=== PATIENT | male | born 1970 | race Caucasian/White ===

== ENCOUNTER 2024-08-18 06:08 | Emergency (ER) | payer SELFPAY ==
[2024-08-18 06:10] VITALS: BP 165/104; PULSE 82; RESP 22; TEMP 36.9; O2SAT 100; BMI 36.6
--- NOTE | 2024-08-18 06:24 | XRR_ITS ---
PROCEDURE INFORMATION: Exam: XR Left Knee Exam date and time: 08/18/2024 6:57 AM Age: 54 years old Clinical indication: Pain; Knee; Left TECHNIQUE: Imaging protocol: Radiologic exam of the left knee. Views: 3 views. COMPARISON: No relevant prior studies available. FINDINGS: Bones/joints: There is a somewhat linear lucency through the medial patella vertically noted on the frontal image only. This could represent a fracture or pseudo fracture. Recommend clinical correlation. This is not visualized on the oblique or lateral images. No fractures are otherwise noted. There is no evidence of a dislocation. Bony mineralization is normal. There is no evidence of a significant joint effusion. Soft tissues: Normal. XR/XR knee LT 3V* [id number] IMPRESSION: 1. Fracture versus pseudo fracture involving the medial patella. Recommend clinical correlation. No abnormalities are otherwise appreciated
--- NOTE | 2024-08-18 06:24 | ED_ITS ---
HPI - Back Pain/Injury 2 General: Chief Complaint: Back Pain/Injury Stated Complaint: KNEE/BACK/HIP PAIN Time Seen by Provider: 08/18/24 06:13 History of Present Illness: 54-year-old male presents emergency room complaining of back pain and left hip and knee pain. Patient states yesterday he felt a popping sensation in the left knee and while he was walking across level ground. He is not any specific injury or fall no previous injury to the back. Reports pain radiating down from his back through his buttock into his leg. No urinary retention or fecal incontinence. He has no shortness of breath no swelling in his leg. Denies chest pain or shortness of breath. No direct injury to his back lower leg Associated symptoms: Deny abdominal pain, chills, dysuria, fever(s) or urinary urgency Related Data Previous Rx's Medication Instructions Recorded diclofenac sodium 75 mg 75 mg PO Q12H PRN pain #20 tabs 08/18/24 tablet,delayed release hydrocodone 5 mg-acetaminophen 325 1 tab PO Q6H PRN pain #20 tabs 08/18/24 mg tablet prednisone 20 mg tablet 20 mg PO TID #15 tabs 08/18/24 tizanidine 4 mg tablet 4 mg PO Q6H PRN muscle spasticity 08/18/24 #20 tabs Allergies Allergy/AdvReac Type Severity Reaction Status Date / Time amoxicillin [From Augmentin] Allergy Mild ALGY-Anaphy Verified 08/18/24 06:20 laxis clavulanic acid Allergy Mild ALGY-Anaphy Verified 08/18/24 06:20 [From Augmentin] laxis Review of Systems 2 Const: Denies: fever(s) or chills Card: Denies: chest pain Resp: Denies: dyspnea GI: Denies: abdominal pain : Denies: dysuria, urinary frequency or urinary urgency Musc: Reports: back pain and joint pain (Left knee); Denies: neck pain Skin/Breast: Denies: rash Physical Exam 2 Const: COMMON NORMALS: no acute distress GENERAL APPEARANCE: cooperative and comfortable ORIENTATION/CONSCIOUSNESS: Yes awake, Yes oriented to person, Yes oriented to place and Yes oriented to time HENMT: COMMON NORMALS: normocephalic, atraumatic and hearing grossly normal bilaterally HEAD & SCALP: normocephalic and atraumatic Resp: COMMON NORMALS: normal respiratory effort, No retractions, No use of accessory muscles and clear to auscultation bilaterally AUSCULTATION: clear to auscultation bilaterally Cardio: COMMON NORMALS: regular rate, regular rhythm and No murmurs present (Cardio) RATE: regular rate RHYTHM: regular rhythm GI: COMMON NORMALS: Soft to palpation and No hepatosplenomegaly present A USCULTATION: Yes normoactive bowel sounds PALPATION: Yes Soft to palpation, No Tenderness to palpation present (GI), No Guarding due to palpation present (GI) and Yes No hepatosplenomegaly present Extremity: COMMON NORMALS: normal to inspection, capillary refill normal, no clubbing, cyanosis or edema, no calf tenderness and no pedal edema OTHER: Difficult to examine. With even light touch of the leg. Patient complains of severe pain he can dorsi and plantarflex against resistance with strength of 5/5 deep tendon reflexes patellar COVID able to elicit +1/4. Straight leg raising nonfocal complains of generalized pain everywhere with straight leg raise. Breakaway muscle weakness with dorsiflexion of the left great toe. Neuro: SENSORIUM/ORIENTATION: Yes oriented to person, Yes oriented to place and Yes oriented to time Skin: COMMON NORMALS: no rashes or lesions noted GENERAL SKIN EXAM: no rashes or lesions noted Course 2 Vital Signs: Vital signs: Vital Signs Temperature 98.4 F 08/18/24 06:10 Pulse Rate 66 08/18/24 10:47 Respiratory Rate 14 08/18/24 10:47 Blood Pressure 135/86 08/18/24 10:47 Pulse Oximetry 98 08/18/24 10:47 Oxygen Delivery Me thod Room Air 08/18/24 10:47 MDM - Back Pain/Injury Medical Decision Making Back pain improved after medications. Discharge patient home on hydrocodone diclofenac and tizanidine use. Start oral steroid taper tomorrow. Will make arrangements for outpatient MRI and follow-up with orthopedic spine surgery. CT of the spine and plain films of the lower extremity did not show any acute fracture nothing on exam suggestive of DVT there is no swelling of the leg. Labs I reviewed the patient's lab results. 08/18/24 06:35 08/18/24 06:35 Radiology Impressions Knee X-Ray 08/18/24 06:24 IMPRESSION: 1. Fracture versus pseudo fracture involving the medial patella. Recommend clinical correlation. No abnormalities are otherwise appreciated Hip/Pelvis X-Ray 08/18/24 06:45 IMPRESSION: No acute findings. Lumbar Spine CT 08/18/24 06:45 IMPRESSION: 1. Grade 1 anterolisthesis of L4 in relation to L5 secondary to degenerative facets. 2. Multilevel degenerative disc and facet change. Particulars at each level are given above. Knee CT 08/18/24 07:42 IMPRESSION: 1. No fracture identified. Laboratory Results WBC 8.85 10^3/uL (3.29-11.43) 08/18/24 06:35 RBC 5.07 10^6/uL (3.85-5.65) 08/18/24 06:35 Hgb 16.00 g/dL (11.27-16.99) 08/18/24 06:35 Hct 48.0 % (37-53) 08/18/24 06:35 MCV 94.7 fl (82-101) 08/18/24 06:35 MCH 31.6 pg (27-33) 08/18/24 06:35 MCHC 33.3 g/dL (30-55) 08/18/24 06:35 RDW 13.2 % (12.1-15.1) 08/18/24 06:35 Plt Count 290 10^3/cmm (157-399) 08/18/24 06:35 MPV 9.9 fL (7.4-10.4) 08/18/24 06:35 Neut % (Auto) 68.9 % 08/18/24 06:35 Lymph % (Auto) 20.5 % 08/18/24 06:35 Cascade % (Auto) 7.6 % 08/18/24 06:35 Eos % (Auto) 1.6 % 08/18/24 06:35 Baso % (Auto) 0.8 % 08/18/24 06:35 Neut # (Auto) 6.11 10^3/uL (1.8-7.7) 08/18/24 06:35 Lymph # (Auto) 1.8 10^3/uL (0.8-4.8) 08/18/24 06:35 Cascade # (Auto) 0.7 10^3/uL (0.2-0.9) 08/18/24 06:35 Eos # (Auto) 0.1 10^3/uL (0.0-0.8) 08/18/24 06:35 Baso # (Auto) 0.1 10^3/uL (0.0-0.1) 08/18/24 06:35 Nucleated RBC % (auto) 0 % 08/18/24 06:35 Nucleated RBCs # 0.0 /100WBC 08/18/24 06:35 Sodium 141 mmol/L (136-145) 08/18/24 06:35 Potassium 4.3 mmol/L (3.5-5.1) 08/18/24 06:35 Chloride 104 mmol/L (98-107) 08/18/24 06:35 Carbon Dioxide 24 mmol/L (22-29) 08/18/24 06:35 Anion Gap 17.3 (5-19) 08/18/24 06:35 BUN 11 mg/dL (6-20) 08/18/24 06:35 Creatinine 1.2 mg/dL (0.7-1.2) 08/18/24 06:35 GFR Calculation 63.3 mL/min (90-130) L 08/18/24 06:35 Glucose 106 mg/dL (65-115) 08/18/24 06:35 Calculated Osmolality 292 mOsm/kg (285-295) 08/18/24 06:35 Calcium 9.2 mg/dL (8.5-10.5) 08/18/24 06:35 Total Bilirubin 1.4 mg/dL (0.15-1.2) H 08/18/24 06:35 AST 33 U/L (0-40) 08/18/24 06:35 ALT 46 U/L (0-41) H 08/18/24 06:35 Alkaline Phosphatase 107 U/L (40-130) 08/18/24 06:35 Total Protein 7.2 g/dL (6.6-8.7) 08/18/24 06:35 Albumin 4.4 g/dL (3.5-5.2) 08/18/24 06:35 Globulin 2.8 g/dL (1.3-4.6) 08/18/24 06:35 All radiology interpretation(s) finalized by discharge Discharge Plan Discharge Patient Disposition: Home Clinical Impression: Lumbar radiculopathy Condition: Stable Prescriptions: New tizanidine 4 mg tablet 4 mg PO Q6H PRN (Reason: muscle spasticity) Qty: 20 0RF Rx Instructions: do not exceed 3 doses per 24 hrs hydrocodone-acetaminophen 5-325 mg tablet 1 tab PO Q6H PRN (Reason: pain) Qty: 20 0RF prednisone 20 mg tablet 20 mg PO TID Qty: 15 0RF Rx Instructions: 1 p.o. 3 times daily x3 days, 1 p.o. twice daily x2 days, 1 p.o. daily x2 days diclofenac sodium 75 mg tablet,delayed release (DR/EC) 75 mg PO Q12H PRN (Reason: pain) Qty: 20 0RF Discharge Orders: Discharge ED (Routine); Ordered 08/18/24 Ordered By: Jose Daniel Corona Discharge Diet: Usual diet Discharge Activity: Limit activity as instructed Patient Instructions: Opioid Safety, Pain Management Activity Restrictions/Additional Instructions: Thank you for choosing [facility] for your healthcare needs today. It is very important that you follow up as instructed or that you return to the Emergency Department should you have concerns or if your condition changes or worsens in any way. You are seen in the emergency room with back pain with left leg radicular pain. Case management make arrangements for you to have a MRI of your lumbar spine and follow-up with the orthopedic spine surgery. You are discharged home with pain medications start the oral steroids tomorrow you can use diclofenac hydrocodone and tizanidine as needed. Avoid heavy lifting bending turning. Imaging of your left knee did not show any acute injury suspect that your pain in your knee is a referred pain from the back. Coding Level of Care Code ED Bonderizer for Nelia Pickens
--- NOTE | 2024-08-18 06:45 | XRR_ITS ---
PROCEDURE INFORMATION: Exam: XR Left Hip Exam date and time: 08/18/2024 6:55 AM Age: 54 years old Clinical indication: Hip pain; Left hip TECHNIQUE: Imaging protocol: Radiologic exam of the left hip. Views: 2 or 3 views hip with pelvis when performed. COMPARISON: No relevant prior studies available. FINDINGS: Bones/joints: Unremarkable. No acute fracture. Soft tissues: Unremarkable. XR/XR hip LT 2-3V wo/w pel* [id number] IMPRESSION: No acute findings.
--- NOTE | 2024-08-18 06:45 | CTR_ITS ---
PROCEDURE INFORMATION: Exam: CT Lumbar Spine Without Contrast Exam date and time: 08/18/2024 7:03 AM Age: 54 years old Clinical indication: Low back pain; Patient HX: Pain radiates down L leg TECHNIQUE: Imaging protocol: Computed tomography of the lumbar spine without contrast. Radiation optimization: All CT scans at this facility use at least one of these dose optimization techniques: automated exposure control; mA and/or kV adjustment per patient size (includes targeted exams where dose is matched to clinical indication); or iterative reconstruction. COMPARISON: CR XR hip LT 2-3V wo/w pel* [id number] 08/18/2024 6:55 AM RADIATION DOSE METRICS: Total DLP (mGy-cm): 1403 FINDINGS: Bones/joints: Examination of the coronal reformatted images demonstrates a trace scoliotic curvature convex left. Examination of the sagittal reformatted images demonstrates grade 1 anterolisthesis of L4 in relation to L5. No compression fractures are noted. There is minimal disc space narrowing at L4-L5 and L5-S1. No blastic or lytic bony lesions are noted. There are degenerative changes involving the lumbar facets. T11-12: There are mild degenerative changes involving the facets. The spinal canal and foramina are widely patent. T12-L1: There is trace disc bulging. There are mild degenerative changes involving the facets. The spinal canal and foramina are widely patent. L1-L2: There is trace disc bulging. There are minimal degenerative changes involving the facets. The spinal canal and foramina are widely patent. L2-L3: There is mild disc bulging. There are minimal degenerative changes involving the facets. There is minimal resultant canal narrowing. The neural foramina are widely patent. L3-L4: There is diffuse disc bulging. There are degenerative changes involving the facets. There is mild resultant canal narrowing. The neural foramina are patent. L4-L5: There is diffuse disc bulging. There are severe degenerative changes involving the facets. There is moderate resultant canal narrowing with moderate bilateral foraminal narrowing. No lateralizing soft disc protrusion is noted. L5-S1: There are degenerative changes involving the facets. The spinal canal and foramina are patent. Soft tissues: Unremarkable. CT/CT lumbar spine wo con* [id number] IMPRESSION: 1. Grade 1 anterolisthesis of L4 in relation to L5 secondary to degenerative facets. 2. Multilevel degenerative disc and facet change. Particulars at each level are given above.
[2024-08-18 06:46] LABS: Basophils # 0.1 10^3/uL (0.0-0.1); Basophils % 0.8 %; Eosinophils # 0.1 10^3/uL (0.0-0.8); Eosinophils % 1.6 %; Lymphocytes # 1.8 10^3/uL (0.8-4.8); Lymphocytes % 20.5 %; Mean Corpuscular HGB Conc 33.3 g/dL (30-55); Mean Corpuscular Hemoglobin 31.6 pg (27-33); Mean Corpuscular Volume 94.7 fl (82-101); Mean Platelet Volume 9.9 fL (7.4-10.4); Monocytes # 0.7 10^3/uL (0.2-0.9); Monocytes % 7.6 %; Neutrophils # 6.11 10^3/uL (1.8-7.7); Neutrophils % 68.9 %; Nucleated Red Blood Cells % 0 %; Platelet Count 290 10^3/cmm (157-399); Red Blood Count 5.07 10^6/uL (3.85-5.65); Red Cell Distribution Width 13.2 % (12.1-15.1); White Blood Count 8.85 10^3/uL (3.29-11.43)
[2024-08-18 07:07] LABS: Alanine Aminotransferase 46 U/L (0-41); Albumin Level 4.4 g/dL (3.5-5.2); Alkaline Phosphatase 107 U/L (40-130); Anion Gap 17.3 (5-19); Aspartate Amino Transferase 33 U/L (0-40); Blood Urea Nitrogen 11 mg/dL (6-20); Calcium 9.2 mg/dL (8.5-10.5); Carbon Dioxide 24 mmol/L (22-29); Chloride 104 mmol/L (98-107); Creatinine Clr Calc Pharmacy 77.3494; Globulin 2.8 g/dL (1.3-4.6); Glomerular Filtration Rate 63.3 mL/min (90-130); Glucose 106 mg/dL (65-115); Osmolality Calculated 292 mOsm/kg (285-295); Potassium 4.3 mmol/L (3.5-5.1); Sodium 141 mmol/L (136-145); Total Bilirubin 1.4 mg/dL (0.15-1.2); Total Protein 7.2 g/dL (6.6-8.7)
--- NOTE | 2024-08-18 07:42 | CTR_ITS ---
PROCEDURE INFORMATION: Exam: CT Left Lower Extremity, Knee Exam date and time: 08/18/2024 8:12 AM Age: 54 years old Clinical indication: Pain; Knee; Left; Additional info: Pain - possible patella FX TECHNIQUE: Imaging protocol: CT of the left lower extremity without contrast was performed. Exam focused on the knee. Radiation optimization: All CT scans at this facility use at least one of these dose optimization techniques: automated exposure control; mA and/or kV adjustment per patient size (includes targeted exams where dose is matched to clinical indication); or iterative reconstruction. COMPARISON: CR XR knee LT 3V* [id number] 08/18/2024 6:57 AM RADIATION DOSE METRICS: Total DLP (mGy-cm): 358 FINDINGS: Bones/joints: No fractures are appreciated. There is no evidence of a dislocation. No worrisome blastic or lytic bony lesions are noted. There is a physiologic amount of fluid within the joint. Soft tissues: No acute appearing soft tissue abnormalities are noted. The ACL and PCL are intact. The quadriceps and patellar tendons are normal. CT/CT knee LT wo con* [id number] IMPRESSION: 1. No fracture identified.
[2024-08-18] MEDS: ondansetron 2 mg/ML SDV 2 mL 4 MG IVP (07:52)
[2024-08-18] MEDS: orphenadrine 30 mg/mL Inj 2 mL 60 MG IVP (07:54)
[2024-08-18] MEDS: dexamethasone 10 mg/mL INJ IVP (07:54)
[2024-08-18] MEDS: morphine 4 mg/mL SDV 1 mL IVP ×2 (07:54→10:41)
[2024-08-18] MEDS: ketorolac 30 mg/mL INJ IVP (07:54)
[2024-08-18 08:07] VITALS: BP 157/81; PULSE 60; RESP 20; O2SAT 100
[2024-08-18 09:51] VITALS: BP 145/85; PULSE 55; RESP 16; O2SAT 95
[2024-08-18 10:41] VITALS: RESP 16; O2SAT 98
[2024-08-18 10:47] VITALS: BP 135/86; PULSE 66; RESP 14; O2SAT 98
--- NOTE | 2024-08-18 11:31 | DCPLANNER ---
faxed outpatient mri to [facility] and messaged ortho
[2024-08-18 11:59] VITALS: BP 160/85; PULSE 67; RESP 16; O2SAT 96
== END 2024-08-18 12:03 | disposition home or self-care (01) ==
PROVIDERS: Emergency Provider Family Medicine
DX: M54.16 Radiculopathy, lumbar region (principal)
CPT/HCPCS: 72131; 73502; 73562; 73700; 80053; 85025; 96374; 96375; 96376; 99285; J1100; J1885; J2270; J2360; J2405